=== PATIENT | female | born 1965 | race Caucasian/White ===

== ENCOUNTER 2025-06-04 13:41 | Outpatient (CLI) | payer BC ==
[2025-06-04] MEDS ORDERED: Iopamidol-370 76% 500 ML BOT (X-RAY USE) FS ONE (14:38)
== END 2025-06-04 13:42 | disposition home or self-care (01) ==
LOC: RAD 13:41
PROVIDERS: ATTEND Urology
DX: N13.30 Unspecified hydronephrosis (principal)
CPT/HCPCS: 51600; 51702; 74455